=== PATIENT | male | born 1950 | race Caucasian/White ===

== ENCOUNTER 2019-10-25 15:19 | Emergency (ER) | payer MEDICARE ==
[~2019-10-25] VITALS: Ht 175.3 cm; Wt 73.0 kg
[2019-10-25 15:41] VITALS: BP 144/95
== END 2019-10-25 21:19 | disposition left against medical advice (07) ==
LOC: ER 15:23
DX: Z53.21 Procedure and treatment not carried out due to patient leaving prior to being seen by health care provider (principal)